=== PATIENT | male | born 1965 | race Caucasian/White ===

== ENCOUNTER 2016-12-02 12:44 | Emergency (ER) | payer OTHER ==
[~2016-12-02] VITALS: Ht 180.3 cm; Wt 72.7 kg
[2016-12-02 12:47] VITALS: BP 105/68; PULSE 81; RESP 20; O2SAT 98
--- NOTE | 2016-12-02 12:54 | ED.REPORT ---
HPI-General Illness Date of Service Dec 02, 2016 ED Provider: Ciro Padilla MD Pt is a 51 y.o. male with a hx of IA, TIA, and recent dx of DM II who presents to the ED with elevated BG of 453 prior to arrival. Pt was seen at [facility] ED 2 days ago for left chest pain and dx with DM II. He was prescribed 850mg of metformin BID. Pt's BG was recorded at 420, his chest x-ray was negative, and both his troponin and D-dimer were normal during his visit. He reports that his BG has remained elevated despite taking the metformin as directed. He recorded a BG of 420 earlier today and of 453 prior to arrival. He reports associated dizziness, hot flashes, and headache. He also reports intermittent chest pain, episodes lasting approximately several seconds to a minute, onset 3 weeks ago. He denies SOB and fever. Pt has an appointment with a new PCP on Sunday, Dr. Ana Cristina Julian in [facility]. Nursing Notes Stated Complaint: HIGH BLOOD SUGAR Chief Complaint: General Complaint Nursing Notes Reviewed: Yes Allergies: Coded Allergies: Penicillins (Verified Allergy, Mild, 12/02/16) Scheduled Omeprazole (Omeprazole) 20 Mg Capsule. 20 MG PO BID General Time Seen by MD: 12:54 Chief Complaint Other (Elevated BG) Hx Obtained From: Patient Arrived By: Walk-in Sudden in Onset?: Yes Onset Occurred: 2 days ago Symptom Duration: Since onset Location: : Chest Quality: Painful Recent Healthcare: Recent doctor visit Past Medical History Past Medical History Hx of IA Reports: Diabetes mellitus, Transient ischemic attack Past Surgical History Reports: Back/neck surgery Smoking History Current Every Day Smoker Social History Alcohol Use: Denies alcohol use Ambulatory Status Independent Review of Systems Elevated BG Hot flashes Full Review of Systems Constitutional: Denies: Fever Respiratory: Denies: Shortness of breath Cardiovascular: Reports: Chest pain Neurologic: Reports: Dizziness, Headache Complete sys rev & neg: except as marked. Physical Exam Vital Signs Vital Signs Date Time Temp Pulse Resp B/P Pulse Ox O2 Delivery O2 Flow Rate FiO2 12/02/16 16:57 88 113/64 96 Room Air 12/02/16 14:10 73 102/65 97 Room Air 12/02/16 12:47 36.6 81 20 105/68 98 Room Air Initial VS: Reviewed Head / Eyes: Atraumatic, Normocephalic, PERRL Extremities: Vascular intact, Neuro intact Skin: Warm, Dry, No cyanosis Neurologic: Alert, Oriented, Nonfocal Psychiatric: Mood/affect normal, Behavior normal, Normal thought content General/Constitutional: Awake, Alert, Well appearing, Well developed, Well hydrated, Well nourished, Not toxic appearing Respiratory / Chest: Atraumatic, Breath sounds NL, Breath sounds = bilat, No respiratory distress Cardiovascular: Heart rate NL, Regular rhythm, Heart sounds NL, No gallop, No murmurs, No rubs, Cap refill not delayed, Peripheral circulation NL Abdomen: Atraumatic, Soft, Non-tender, No guarding, No rebound, No distention Interpretation & Diagnostics Lab Results Interpretation Result Diagram: 12/02/16 1300 12/02/16 1300 Test 12/02/16 13:00 12/02/16 15:20 White Blood Count 11.7th/mm3 (3.8-10.1) Red Blood Count 5.43mil/mm3 (4.40-5.80) Hemoglobin 15.9g/dL (13.8-17.2) Hematocrit 46.8% (41.0-50.0) Mean Corpuscular Volume 86.2fL (81-100) Mean Corpuscular Hemoglobin 29.3pg (27.0-35.0) Mean Corpuscular Hemoglobin Concent 34.0% (32.0-37.0) Red Cell Distribution Width 13.6% (12.3-15.4) Platelet Count 238bil/L (150-400) Neutrophils (%) (Auto) 61.1% (40-74) Lymphocytes (%) (Auto) 25.6% (14-46) Monocytes (%) (Auto) 10.1% (4-12) Eosinophils (%) (Auto) 2.4% (0-5) Basophils (%) (Auto) 0.6% (0-3) Sodium Level 132mEq/L (134-144) Potassium Level 5.5mEq/L (3.5-5.2) Chloride Level 93mEq/L (97-108) Carbon Dioxide Level 19mmol/L (18-29) Blood Urea Nitrogen 9mg/dL (6-24) Creatinine 0.79mg/dL (0.76-1.27) Estimat Glomerular Filtration Rate 110mL/min (>59) Glucose Level 402mg/dL (60-99) Calcium Level 9.3mg/dL (8.5-10.1) Magnesium Level 2.0mg/dL (1.6-2.6) Total Bilirubin 0.4mg/dL (0.0-1.2) Aspartate Amino Transf (AST/SGOT) 114U/L (0-50) Alanine Aminotransferase (ALT/SGPT) 95U/L (0-44) Alkaline Phosphatase 113U/L (25-150) Troponin T < 0.010ug/L (0.0-0.011) Total Protein 7.3g/dL (6.4-8.4) Albumin 4.2g/dL (3.4-5.0) Hold Whiteside Top Tube Received (Received) Hold Urine Received (Received) ECG Interpretation Time: 13:14 Interpreted by: ED physician Normal ECG Interpretation: Normal rate (77), Normal sinus rhythm, No acute ischemic changes Time: 14:03 Interpreted by: ED physician Normal ECG Interpretation: Normal rate (73), Normal sinus rhythm, No acute ischemic changes, No change from prior ECGs Repeat ECG: Repeat ECG unchanged X-Ray Chest Interpretation Chest Xray Interpretation: IMPRESSION: No acute cardiopulmonary disease process. Dictated by: Dawn Nuñez MD, PhD on 12/02/2016 at 13:26 Approved by: Dawn Nuñez MD, PhD on 12/02/2016 at 13:26 Re-Eval/Medical Decision Source of Hx: Old records Time of Eval: 13:46 Re-Evaluation/Progress Note: Pt is currently experiencing chest pain. Re-evaluated pt and respiratory and cardiovascular exam are normal. Will repeat his EKG and administer Pepcid. Time of Eval: 16:10 Patient Status: Condition improved, Pain resolved Re-Evaluation/Progress Note: Pt rechecked. Pt is feeling improved and his pain has resolved. Counseled Regarding: Diagnosis, Lab results, Need for follow-up, When/why to return to ED Discharge & Departure Primary Impression: Non-cardiac chest pain Additional Impressions: Hyperglycemia GERD (gastroesophageal reflux disease) Esophagitis presence: esophagitis presence not specified Qualified Code: K21.9 - Gastro-esophageal reflux disease without esophagitis Disposition: Home Discharge Condition All VS Reviewed: Yes Condition: Improved Patient Instructions: Gastroesophageal Reflux Disease (ED), Noncardiac Chest Pain (ED) Additional Instructions: Thank you for entrusting us with your care today. Your EKG, imaging, and lab results were reassuring and no serious cause for your chest pain was found today. Your chest pain is most likely due to esophageal spasms and reflux. Stay away from ibuprofen. You can take up to 3000mg of Tylenol a day as needed for pain. I will prescribe you Omeprazole 20mg take twice daily. Keep taking your medication as directed and keep your appointment on Sunday. Stay away from simple carbohydrates, sugars, and sweets in general. Return if you begin to experience worsening chest pain, weakness, numbness or tingling in your extremities, excessive sweating, or any new or worsening symptoms. Referrals: OTHER,PHYSICIAN (PCP) (Family) Scribe Attestation Portions of this note were transcribed by Cintia Aleman. I, Dr. Padilla personally performed the history, physical exam and medical decision-making; I reviewed and confirmed the accuracy of the information in the transcribed note. Signed by: Gonzalez Calderon, 12/02/16 and 1619. Ciro Padilla MD Dec 02, 2016 12:54 CINTIA ALEMAN Dec 02, 2016 13:03
[2016-12-02] MEDS ORDERED: 0.9% Sodium Chloride 1,000 ML IV ONE (13:00)
[2016-12-02 13:21] LABS: BASOPHILS % (AUTO) 0.6 % (0-3); EOSINOPHILS % (AUTO) 2.4 % (0-5); MONOCYTES % (AUTO) 10.1 % (4-12); Mean Corpuscular Hemoglobin 29.3 pg (27.0-35.0); Mean Corpuscular Volume 86.2 fL (81-100); NEUTROPHILS % (AUTO) 61.1 % (40-74); Platelet Count 238 bil/L (150-400)
--- NOTE | 2016-12-02 13:27 | DRSVH ---
PROCEDURE: X-RAY CHEST ONE VIEW, PORTABLE ([id number]) INDICATIONS: chest pain TECHNIQUE: One view of the chest was acquired. COMPARISON: None. FINDINGS: Surgical changes and devices: None. Lungs and pleura: No pleural effusions or pneumothorax. Lungs are clear. Mediastinum: Mediastinal contours appear normal. Heart size is normal. Bones and chest wall: No suspicious bony lesions. Overlying soft tissues appear unremarkable. IMPRESSION: No acute cardiopulmonary disease process. Dictated by: Dawn Nuñez MD, PhD on 12/02/2016 at 13:26 Approved by: Dawn Nuñez MD, PhD on 12/02/2016 at 13:26
[2016-12-02 13:56] LABS: TROPONIN T < 0.010 ug/L (0.0-0.011)
[2016-12-02 14:10] VITALS: BP 102/65; PULSE 73; O2SAT 97
[2016-12-02] MEDS ORDERED: OMEP20CA11 PO (16:21)
[2016-12-02 16:57] VITALS: BP 113/64; PULSE 88; O2SAT 96
== END 2016-12-02 16:35 | disposition home or self-care (01) ==
LOC: SED 12:44
DX: R07.89 Other chest pain (principal); E11.65 Type 2 diabetes mellitus with hyperglycemia; K21.9 Gastro-esophageal reflux disease without esophagitis; I25.2 Old myocardial infarction; F17.200 Nicotine dependence, unspecified, uncomplicated; Z86.73 Personal history of transient ischemic attack (TIA), and cerebral infarction without residual deficits; Z88.0 Allergy status to penicillin
CPT/HCPCS: 36415; 71010; 80053; 82948; 83036; 83735; 84484; 85025; 93005; 96360; 99285; J7030